=== PATIENT | male | born 2000 | race Caucasian/White ===

== ENCOUNTER 2025-08-11 11:17 | Emergency (ER) | payer OTHER, SELFPAY ==
[2025-08-11 11:18] VITALS: BMI 28.1
[2025-08-11 11:23] VITALS: BP 142/100
[2025-08-11 11:25] LABS: Glucose - Point of Care 131 mg/dl (70-99)
[2025-08-11 11:54] LABS: Hematocrit 50.5 % (39.0-52.0); Hemoglobin 17.7 g/dL (13.0-18.0); Mean Corp Hgb Conc. 35.0 g/dL (33.0-37.0); Mean Corpuscular Volume 82.2 fL (80.0-94.0); Nucleated Red Blood Cells % 0 % (-); Platelet Count 310 10^3/uL (130-400); Red Cell Dist. Width 13.0 % (11.5-14.5)
[2025-08-11 12:11] LABS: ALT (SGPT) 40 U/L (0-50); AST (SGOT) 25 U/L (17-59); Albumin 5.3 g/dl (3.5-5.0); Alkaline Phosphatase 82 U/L (38-126); Blood Urea Nitrogen 16 mg/dl (9-20); Calcium 10.2 mg/dl (8.4-10.2); Carbon Dioxide 24 mmol/L (22-30); Chloride 101 mmol/L (98-107); Glucose 134 mg/dl (70-99); Potassium 4.0 mmol/L (3.5-5.1); Sodium 139 mmol/L (135-145); Total Protein 8.8 g/dl (6.3-8.2); eGFR > 60.00
[2025-08-11 12:18] VITALS: BP 132/83
[2025-08-11 12:19] LABS: Troponin I < 0.012 ng/ml
[2025-08-11 12:30] VITALS: BP 123/72
--- NOTE | 2025-08-11 13:00 | ED.GENMED ---
History of Present Illness
General
Chief Complaint: Chest Pain
Source: patient
Exam Limitations: none
Time Seen by Provider: 08/11/25 12:26
History of Present Illness
History of Present Illness:
25-year-old male presents complaining of intermittent headache for a week and a half. He notes dizziness with nausea associated with the headache. He notes photosensitivity but denies a fever. No rash or neck pain. There is a family history of
migraines. He has never really dealt with migraines but before. He took 2 Excedrin today and shortly afterwards became very shaky and was having trouble walking because he was so shaky. No other complaints at this time
Phy Exam
Physical Exam
Physical Exam:
General: Well-appearing with slightly anxious male no acute respiratory distress
HEENT: Normal cephalic atraumatic pupils equal round reactive to light neck is supple
Heart: Regular rate and rhythm
Lungs: Clear no wheeze
Abdomen is soft nontender nondistended
Neurologic exam: Alert and oriented normal gait. Face is symmetric no unilateral deficit
Vascular: 2+ radial pulses bilaterally and DP pulses bilaterally
Skin is warm no rash
Scores
Heart Score for Chest Pain Patients
STEMI patient?: No
History: Slightly or Non-Suspicious
ECG: Normal
Age: </= 45 years
Risk Factors: No Risk Factors
Troponin: </= Normal Limit
Heart Score for Chest Pain Patients: 0
Heart Score Risk: 2.5% MACE over next 6 weeks
Course
Orders/Labs/Results
Orders:
Orders
08/11/25 11:19
Electrocardiogram (*1) Urgent
Reason for Study: Chest Pain
Cardiac Monitoring- Treatment ONCE
EKG- Treatment ONCE
IV Insert/Care/Rem.- Treatment PRN
O2 Therapy [RESP] Urgent
Titrate/Wean O2 to maintain O2 sat greater than (%): 90
Special Instructions: Maintain sats >/=90%
Pulse Ox/spot Check [RESP] Urgent
Quantity: 1
Special Instructions: ON ROOM AIR
08/11/25 11:39
Complete Blood Count/With Diff Urgent
Comprehensive Metabolic Panel Urgent
Troponin I Urgent
08/11/25 12:58
CT Head W/o Iv Contrast Urgent
Comment:
Reason For Exam: headache, dizzy
0.9% Sodium Chloride 1000 ml [Nss] 1,000 ml IV BOLUS
Ondansetron Injectable [Zofran] 4 mg IV NOW STA
08/11/25 13:09
Influenza A+B Rapid Molecular Urgent
JESUS Source: Nasal Swab
Specimen Description:
Abnormal Lab Results
08/11/25 08/11/25
11:24 11:39
RBC 6.14 H 10^6/uL
(4.70-6.10)
Abs Immat Gran (auto) 0.1 H 10^3/uL
(0-0.05)
Absolute Lymphs (auto) 3.9 H 10^3/uL
(1.2-3.4)
Immature Gran % 0.8 H %
(0-0.5)
Glucose 134 H mg/dl
(70-99)
Total Protein 8.8 H g/dl
(6.3-8.2)
Albumin 5.3 H g/dl
(3.5-5.0)
POC Glucose 131 H mg/dl
(70-99)
08/11/25 11:39
08/11/25 11:39
Vital Signs
Initial and Last Documented VS:
Initial Vital Signs
Temp Pulse Resp BP Pulse Ox
98.2 F 95 15 142/100 99
08/11/25 11:23 08/11/25 11:23 08/11/25 11:23 08/11/25 11:23 08/11/25 11:23
Last Documented Vital Signs
Temp Pulse Resp BP Pulse Ox
98.2 F 96 14 127/76 96
08/11/25 14:00 08/11/25 14:30 08/11/25 14:30 08/11/25 13:08 08/11/25 14:30
MDM/Problems Addressed
Differential Diagnosis Includes:
Patient with headache nausea shakiness dizziness. No prior history of significant headaches. Consider migraine headache. He does not describe sudden onset severe headaches. He is neurologically intact. Given new nature of headache CT of the
head was ordered. Labs are done through triage which showed normal troponin. Will treat with fluids Zofran.
*Pulse Oximetry
SaO2: 98
Oxygen Mode of Delivery: Room air
Patient hypoxic: no
*Critical Care Note
Total Time (30-74mins, 75-104mins- exclusive of procedures): Not Applicable
Update Note
Update Note:
CT head negative and reassuring. Patient was given fluids and Zofran and is now feeling hungry. Symptoms are resolving. I suspect possible migraine-like headache exacerbated by anxiety. No indication for admission. Stable for discharge
ED Attending Note
-
Portions of this chart may have been created with voice recognition software.� Occasional wrong word or��sound alike� substitutions may have occurred due to the inherent limitations of voice recognition software.
Discharge Plan
Departure
Patient Disposition: Home (Routine Discharge)
Date of Disposition: 08/11/25
Time of Disposition: 15:46
Patient with high blood pressure during this ER visit?: No
Discharge Problem:
Headache
Instructions: Migraine in adults
Prescriptions:
New
ondansetron 4 mg tablet,disintegrating
4 mg PO Q8H PRN (Reason: nausea and vomiting) Qty: 10 0RF
Referrals:
UNKNOWN - PT NOT,INTERVIEWE [Family Provider]
Activity Restrictions/Additional Instructions:
Rest. Drink plenty fluids. Use Zofran if needed for nausea. Follow-up with your doctor. Return here if needed otherwise
Interventions
Interventions:
*General Assessment Last Done: 08/11/25 11:23
*Neglect/Abuse Screening Last Done: 08/11/25 11:23
*ED COVID-19 Vaccine History Last Done: 08/11/25 11:23
*ED Influenza Vaccine History Last Done: 08/11/25 11:23
[facility] Fall Risk Assessment Tool Last Done: 08/11/25 11:18
*Risk Screen - Suicide (C-SSRS) Last Done: 08/11/25 11:23
ED- Cardiac Assessment Last Done: 08/11/25 12:15
Discharge Date and Time
Print Language: YORUBA
[2025-08-11 13:08] VITALS: BP 127/76
[2025-08-11] MEDS: NSS 1000 IV (13:10)
[2025-08-11] MEDS: ZOFRAN 4 MG IV (13:11)
[2025-08-11 15:52] VITALS: BP 112/67
== END 2025-08-11 15:52 | disposition home or self-care (01) ==
LOC: EMR 11:17
PROVIDERS: Student in an Organized Health Care Education/Training Program; EMERGENCY PHYSICIAN Emergency Medicine
DX: R51.9 Headache, unspecified (principal); R07.89 Other chest pain
CPT/HCPCS: 99284; 96374; 96361; 70450; 80053; 82962; 84484; 85025; 87502; 93005